=== PATIENT | female | born 1945 | race Caucasian/White ===

== ENCOUNTER 2016-08-27 08:02 | Day surgery (SDC) | payer OTHER ==
[2016-08-27] MEDS ORDERED: NS 500 ML IV 500 ML IV ONE (08:23)
[2016-08-27] MEDS ORDERED: TETRACAINE 0.5% OPHTH 1 DOSE AFFEYE ONE ×4 (08:30→12:50)
[2016-08-27] MEDS ORDERED: VIGAMOX 0.5% OPHTH 1 DOSE AFFEYE ONE ×6 (08:31→13:12)
[2016-08-27] MEDS ORDERED: PROLENSA OPHTH 1 DOSE AFFEYE ONE (08:42)
[2016-08-27] MEDS ORDERED: ALPHAGAN-P OPHTH 1 DOSE AFFEYE ONE (08:43)
[2016-08-27] MEDS ORDERED: AK-DILATE 2.5% OPHTH 1 DOSE OP ONE ×4 (08:45→12:08)
[2016-08-27] MEDS ORDERED: MYDRIACIL OPHTH 1 DOSE AFFEYE ONE ×4 (08:45→12:08)
[2016-08-27] MEDS ORDERED: CYCLOGYL 1% OPHTH 1 DOSE OP ONE ×4 (08:45→12:08)
[2016-08-27] MEDS ORDERED: VERSED ONE ×2 (10:03→15:04)
[2016-08-27] MEDS ORDERED: VERSED IVP ONE ×3 (10:56→12:27)
[2016-08-27] MEDS ORDERED: ALCAINE or OPHTHETIC 1 DOSE AFFEYE ONE ×3 (10:57→12:27)
[2016-08-27] MEDS ORDERED: AK-DILATE 10% OPHTH 1 DOSE AFFEYE ONE ×3 (10:57→12:31)
[2016-08-27] MEDS ORDERED: ALCAINE or OPHTHETIC AFFEYE ONE ×2 (11:52→11:54)
[2016-08-27] MEDS ORDERED: FENTANYL INJ 100 mcg ONE (12:15)
[2016-08-27] MEDS ORDERED: FENTANYL INJ 100 mcg IVP ONE (12:28)
[2016-08-27] MEDS ORDERED: BETADINE OPHTH SOLN 5% EACHEYE ONE (12:47)
[2016-08-27] MEDS ORDERED: XYLOCAINE-MPF 1% IJ ONE ×2 (12:48→12:50)
[2016-08-27] MEDS ORDERED: ADRENALINE CHL INJ IJ ONE ×2 (12:48→12:50)
[2016-08-27] MEDS ORDERED: DUOVISC IO ONE ×2 (12:49→12:51)
[2016-08-27] MEDS ORDERED: BSS OPHTH (PLAIN) 500 ML with VANCOMYCIN HCL 500 MG VIAL 25 MG, ADRENALINE CHL INJ 1 MG IR ONE ×3 (12:52)
[2016-08-27] MEDS ORDERED: VISCOAT 0.5 ML IO ONE (13:02)
[2016-08-27 14:07] VITALS: BP 110/66
== END 2016-08-27 13:45 | disposition home or self-care (01) ==
LOC: SURG1 08:02
PROVIDERS: ATTEND Ophthalmology
PROC: 08RJ3JZ Replacement of Right Lens with Synthetic Substitute, Percutaneous Approach (ICD-10-PCS; principal; 2016-08-27 12:45)
PROC: 08DJ3ZZ Extraction of Right Lens, Percutaneous Approach (ICD-10-PCS; principal; 2016-08-27 12:45)
DX: H25.11 Age-related nuclear cataract, right eye (principal); H25.011 Cortical age-related cataract, right eye; H25.041 Posterior subcapsular polar age-related cataract, right eye; H52.221 Regular astigmatism, right eye
CPT/HCPCS: V2797; A4217; J0170; J2250; J3010; J3370

== ENCOUNTER 2016-09-24 07:07 | Day surgery (SDC) | payer OTHER ==
[2016-09-24] MEDS ORDERED: NS 500 ML IV 500 ML IV ONE (07:30)
[2016-09-24] MEDS ORDERED: TETRACAINE 0.5% OPHTH 1 DOSE AFFEYE ONE ×3 (07:40→09:51)
[2016-09-24] MEDS ORDERED: VIGAMOX 0.5% OPHTH 1 DOSE AFFEYE ONE ×3 (07:41→07:51)
[2016-09-24] MEDS ORDERED: PROLENSA OPHTH 1 DOSE AFFEYE ONE (07:52)
[2016-09-24] MEDS ORDERED: ALPHAGAN-P OPHTH 1 DOSE AFFEYE ONE (07:53)
[2016-09-24] MEDS ORDERED: CYCLOGYL 1% OPHTH 1 DOSE OP ONE ×4 (07:54→07:57)
[2016-09-24] MEDS ORDERED: AK-DILATE 2.5% OPHTH 1 DOSE OP ONE ×4 (07:54→07:57)
[2016-09-24] MEDS ORDERED: MYDRIACIL OPHTH 1 DOSE AFFEYE ONE ×4 (07:54→07:57)
[2016-09-24] MEDS ORDERED: VERSED ONE ×2 (08:47→15:25)
[2016-09-24] MEDS ORDERED: VERSED IVP ONE ×2 (09:34→09:50)
[2016-09-24] MEDS ORDERED: AK-DILATE 10% OPHTH 1 DOSE AFFEYE ONE (09:53)
[2016-09-24] MEDS ORDERED: BETADINE OPHTH SOLN 5% EACHEYE ONE (10:02)
[2016-09-24] MEDS ORDERED: XYLOCAINE-MPF 1% IJ ONE ×2 (10:15→10:21)
[2016-09-24] MEDS ORDERED: ADRENALINE CHL INJ IJ ONE ×2 (10:15→10:21)
[2016-09-24] MEDS ORDERED: DUOVISC IO ONE ×2 (10:15→10:21)
[2016-09-24] MEDS ORDERED: TobraDEX OPHTH SUSP 1 DOSE AFFEYE ONE ×3 (10:17→10:36)
[2016-09-24] MEDS ORDERED: BSS OPHTH (PLAIN) 500 ML with VANCOMYCIN HCL 500 MG VIAL 25 MG, ADRENALINE CHL INJ 1 MG IR ONE ×6 (10:18)
[2016-09-24] MEDS ORDERED: VISCOAT 0.5 ML IO ONE (10:29)
[2016-09-24 13:44] VITALS: BP 137/76
== END 2016-09-24 11:03 | disposition home or self-care (01) ==
LOC: SURG1 07:07
PROVIDERS: ATTEND Ophthalmology
PROC: 08RK3JZ Replacement of Left Lens with Synthetic Substitute, Percutaneous Approach (ICD-10-PCS; principal; 2016-09-24 08:15)
PROC: 08DK3ZZ Extraction of Left Lens, Percutaneous Approach (ICD-10-PCS; principal; 2016-09-24 08:15)
DX: H25.12 Age-related nuclear cataract, left eye (principal); H25.042 Posterior subcapsular polar age-related cataract, left eye; H52.222 Regular astigmatism, left eye
CPT/HCPCS: 99100; V2797; A4217; J0170; J2250; J3370